=== PATIENT | male | born 1955 | race Caucasian/White ===

== ENCOUNTER 2016-10-01 09:36 | Day surgery (SDC) | payer OTHER ==
[~2016-10-01] VITALS: Ht 160 cm; Wt 74.5 kg
[2016-10-01 10:32] VITALS: Ht 160 cm; Wt 74.5 kg
[2016-10-01] MEDS ORDERED: CARV3.1260 PO (10:57)
[2016-10-01] MEDS ORDERED: AMLO2.5T78 PO (10:57)
[2016-10-01] MEDS ORDERED: ATOR40TA68 PO (10:57)
[2016-10-01 11:10] VITALS: BP 122/56; PULSE 58; RESP 16
[2016-10-01] MEDS ORDERED: FENTAnyl 50 MCG/ML VIAL ONE (12:14)
[2016-10-01] MEDS ORDERED: MIDAZOLAM 1 MG/ML 2 ML INJ ONE ×2 (12:14)
[2016-10-01 12:37] VITALS: BP 102/59; RESP 20
--- NOTE | 2016-10-01 14:51 | GILP ---
DATE OF PROCEDURE: 10/01/2016 NAME OF PROCEDURE: Colonoscopy. SURGEON: Pino Boyle MD PREOPERATIVE DIAGNOSIS: Screening colonoscopy. POSTOPERATIVE DIAGNOSES 1. Colonoscopy all the way to the cecum. 2. Internal hemorrhoids. 3. No colon neoplasm was identified. INDICATION FOR THE PROCEDURE: Mr. Yamil Price is a 61-year-old male patient who was sche duled for screening colonoscopy. The procedure and possible complications are well explained to the patient. The patient understood and consented to the procedure. DESCRIPTION OF PROCEDURE: Under the influence of fentanyl and Versed, the colonoscope was carefully introduced in the rectum and under direct vision, it was advanced all the way to the cecum. FINDINGS: The patient had internal hemorrhoids. No colon neoplasm was identified. He tolerated the procedure very well and there was no complication from the procedure. At the end o f the procedure, he was awake with stable vital signs and he was discharged home to the care of his family. IMPRESSION: 1. Colonoscopy all the way to the cecum. 2. Internal hemorrhoids. 3. No colon neoplasm was identified. PLAN: Next screening colonoscopy in 10 years. Dictated By: PINO CUEVAS/BJ Conf#: [id number] DID#: [id number] CC: PINO BOYLE MD;*EndCC*
== END 2016-10-01 13:36 | disposition home or self-care (01) ==
LOC: GIL 09:36
PROVIDERS: ATTEND Internal Medicine Gastroenterology
DX: Z12.11 Encounter for screening for malignant neoplasm of colon (principal); D12.0 Benign neoplasm of cecum; K64.8 Other hemorrhoids; I10 Essential (primary) hypertension
CPT/HCPCS: 45380; 88305; J2250; J3010; Z7610